=== PATIENT | female | born 1975 | race Two or more races ===

== ENCOUNTER 2019-07-14 17:35 | Emergency (ER) | payer MEDICAID ==
[2019-07-14] MEDS ORDERED: Acetaminophen/oxyCODONE 325-5 MG Tab PO ONE (18:27)
[2019-07-14] MEDS ORDERED: Ketorolac 60 MG/2 ML SDV IM ONE (18:27)
[2019-07-14] MEDS ORDERED: Acetaminophen 325 MG Tab PO ONE (18:28)
--- NOTE | 2019-07-14 18:52 | EDM.PDOC ---
ED HPI GENERAL MEDICAL PROBLEM - General Chief Complaint: Lower Extremity Injury/Pain Stated Complaint: L LEG PAIN Time Seen by Provider: 07/14/19 18:02 Source of Information: Reports: Patient, RN Notes Reviewed - History of Present Illness INITIAL COMMENTS - FREE TEXT/NARRATIVE: 44-year-old female comes in with severe left lower leg pain. He does have history of chronic pain left leg. She has had prior stroke and since that time has had worsening pain of her left lower extremity. She is on gabapentin. There' s been no recent fall. States she needs to travel back home tomorrow and at this time is finding it hard to sit stand or walk. There is been no swelling of the lower leg he had no chest pain or difficulty breathing. No major low back discomfort. Left Leg Pain Score (Numeric/FACES): 6 - Related Data Allergies Allergy/AdvReac Type Severity Reaction Status Date / Time morphine Allergy Vomiting Verified 07/14/19 18:00 Home Meds: Home Meds Gabapentin [Neurontin] 600 mg PO BID 07/14/19 [History] Lisinopril [Zestril] 20 mg PO DAILY 07/14/19 [History] Metoprolol Tartrate [Lopressor] 50 mg PO DAILY 07/14/19 [History] Past Medical History Cardiovascular History: Reports: Hypertension Neurological History: Reports: CVA - Past Surgical History Female Surgical History: Reports: Section Social & Family History - Tobacco Use Smoking Status *Q: Never Smoker - Caffeine Use Caffeine Use: Reports: None - Recreational Drug Use Recreational Drug Use: No Review of Systems - Review of Systems Review Of Systems: See Below Constitutional: Denies: Chills, Fever Mouth/Throat: Reports: No Symptoms Respiratory: Denies: Shortness of Breath Cardiovascular: Denies: Chest Pain Musculoskeletal: Reports: Leg Pain. Denies: Joint Pain Skin: Denies: Rash, Erythema Neurological: Reports: Numbness (Left lower extremity, chronic) ED EXAM, GENERAL - Physical Exam Exam: See Below General Appearance: Alert, Moderate Distress Throat/Mouth: Normal Inspection Head: Atraumatic Neck: Supple Respiratory/Chest: No Respiratory Distress, Lungs Clear Cardiovascular: Regular Rate, Rhythm Back Exam: No: CVA Tenderness (L), CVA Tenderness (R), Paraspinal Tenderness, Vertebral Tenderness Extremities: Normal Inspection. No: Leg Pain, Increased Warmth Neurological: Alert, Oriented, No Motor/Sensory Deficits, Other (Straight leg raising normal bilaterally, patient is able to walk okay, does walk with a mild limp on the left.) Skin Exam: Warm, Dry, Normal Color Course - Vital Signs Last Recorded V/S: Last Vital Signs Temp 97.4 F 07/14/19 17:58 Pulse 59 L 07/14/19 17:58 Resp 16 07/14/19 17:58 BP 135/104 H 07/14/19 17:58 Pulse Ox 100 07/14/19 17:58 - Orders/Labs/Meds Meds: Medications Discontinued Medications Generic Name Dose Route Start Last Admin Trade Name [place] PRN Reason Stop Dose Admin Acetaminophen 650 mg 07/14/19 18:28 07/14/19 18:39 Tylenol PO 07/14/19 18:29 650 mg NOW ONE Administration Ketorolac Tromethamine 60 mg 07/14/19 18:27 07/14/19 18:37 Toradol IM 07/14/19 18:28 60 mg ONETIME ONE Administration Oxycodone/Acetaminophen 1 tab 07/14/19 18:27 07/14/19 18:39 Percocet 325-5 Mg PO 07/14/19 18:28 1 tab ONETIME ONE Administration Departure - Departure Time of Disposition: 18:50 Disposition: Home, Self-Care 01 Condition: Fair (Leg pain) Clinical Impression: Leg pain, left - Discharge Information Referrals: PCP,Not In Area [Primary Care Provider] - Forms: ED Department Discharge Additional Instructions: You have been given torodol IM, 1/2 tablet percocet to take now, 1/2 tablet to take tomorrow when needed to help get you home. You may continue to take Tylenol alternating with ibuprofen or Aleve tomorrow as needed. Continue gabapentin as previously prescribed. Follow-up with your regular medical provider when you do get back home. Sepsis Event Note - Evaluation Sepsis Screening Result: No Definite Risk - Focused Exam Date Exam was Performed: 07/15/19 Time Exam was Performed: 16:03
== END 2019-07-14 19:00 | disposition home or self-care (01) ==
LOC: JD.ED 17:35
DX: M79.662 Pain in left lower leg (principal); I10 Essential (primary) hypertension; Z88.5 Allergy status to narcotic agent; Z79.899 Other long term (current) drug therapy; Z86.73 Personal history of transient ischemic attack (TIA), and cerebral infarction without residual deficits
CPT/HCPCS: 96372; 99283; A9270; J1885

== ENCOUNTER 2024-01-21 22:04 | Emergency (ER) | payer MEDICAID ==
[2024-01-21] MEDS: Ondansetron 4 MG Tab.DIS PO ONE (22:41)
[2024-01-21 22:43] LABS: BASOPHILS PERCENT AUTO 0.4 % (0.0-1.0); EOSINOPHILS ABSOLUTE AUTO 0.1 K/mm3 (0.0-0.4); EOSINOPHILS PERCENT AUTO 1.1 % (0.0-6.0); HEMATOCRIT 38.6 % (37.0-47.0); HEMOGLOBIN 12.9 gm/dl (12.0-16.0); IMMATURE GRAN ABSOLUTE AUTO 0.03 K/mm3 (0.00-0.05); IMMATURE GRAN PERCENT AUTO 0.3 % (0.0-0.4); LYMPHOCYTES ABSOLUTE AUTO 2.2 K/mm3 (1.0-4.8); LYMPHOCYTES PERCENT AUTO 23.5 % (24.0-44.0); MEAN CORPUSCULAR HEMOGLOBIN 28.9 pg (28.0-32.0); MEAN CORPUSCULAR HGB CONC 33.4 g/dl (32.0-36.0); MEAN CORPUSCULAR VOLUME 86.5 fl (83.0-99.0); MEAN PLATELET VOLUME 9.3 fl (9.4-12.3); MONOCYTES ABSOLUTE AUTO 0.8 K/mm3 (0.0-0.8); MONOCYTES PERCENT AUTO 8.3 % (0.0-8.0); NEUTROPHILS ABSOLUTE AUTO 6.2 K/mm3 (1.8-7.7); NEUTROPHILS PERCENT AUTO 66.4 % (41.0-71.0); PLATELET COUNT,PLT 322 K/mm3 (150-400); RED BLOOD CELL COUNT 4.46 M/mm3 (4.10-5.30); WHITE BLOOD CELL COUNT,WBC 9.32 K/mm3 (3.9-11.3)
[2024-01-21 23:04] LABS: A/G RATIO 0.9 (1-2); ALBUMIN 3.6 g/dl (3.4-5.0); ANION GAP 11.1 (5-15); BILIRUBIN TOTAL 0.3 mg/dL (0.2-1.0); BUN/CREATININE RATIO 15.7 (14-18); CALCIUM 9.1 mg/dL (8.5-10.1); CREATININE 1.4 mg/dL (0.55-1.02); EST CRCL DRUG DOSING (CG) 39.77 mL/min; POTASSIUM,K 3.1 mEq/L (3.5-5.1); PROTEIN TOTAL,TP 7.5 g/dl (6.4-8.2)
[2024-01-21 23:34] LABS: APPEARANCE,URINE CLEAR (Clear); BILIRUBIN,URINE NEGATIVE (Negative); COLOR,URINE YELLOW (Yellow); GLUCOSE,URINE NEGATIVE (Negative); KETONES,URINE 1+ (Negative); LEUKOCYTE ESTERASE,URINE NEGATIVE (Negative); NITRITE,URINE NEGATIVE (Negative); OCCULT BLOOD,URINE NEGATIVE (Negative); PROTEIN,URINE NEGATIVE (Negative); UROBILINOGEN,URINE 0.2 (0.2-1.0)
[2024-01-22] MEDS: Ketorolac 60 MG/2 ML SDV IM ONE
== END 2024-01-22 00:05 | disposition home or self-care (01) ==
LOC: JD.ED 22:04
DX: R10.32 Left lower quadrant pain (principal); I10 Essential (primary) hypertension; Z87.891 Personal history of nicotine dependence; Z79.899 Other long term (current) drug therapy; Z88.5 Allergy status to narcotic agent
CPT/HCPCS: 36415; 74176; 80053; 81003; 83605; 83690; 85025; 96372; 99284; A9270; J1885; 99283